=== PATIENT | male | born 1975 | race Caucasian/White ===

== ENCOUNTER → 2025-07-20 | Outpatient (CLI) | payer OTHER | END | disposition home or self-care (01) | LOC: RADMN 13:01 | PROVIDERS: ATTEND Orthopaedic Surgery | DX: M43.8X5 Other specified deforming dorsopathies, thoracolumbar region (principal); M47.815 Spondylosis without myelopathy or radiculopathy, thoracolumbar region; M47.817 Spondylosis without myelopathy or radiculopathy, lumbosacral region; M41.86 Other forms of scoliosis, lumbar region; M25.78 Osteophyte, vertebrae; M48.07 Spinal stenosis, lumbosacral region; M48.05 Spinal stenosis, thoracolumbar region; M54.50 Low back pain, unspecified | CPT/HCPCS: 72100; 72131 ==